=== PATIENT | male | born 1945 | race Caucasian/White ===

== ENCOUNTER → 2018-01-12 | Outpatient (CLI) | payer OTHER ==
[~2018-01-12] MED LIST: AMLO10TA6 PO; ASPI-621 PO; CARV6.252 PO; CHOL500015 PO; CLOP75TA PO; LOSA1TAB25 PO; PRAV80TA2 PO
[2018-01-12 11:20] LABS: BASOPHILS # (AUTO) 0.05 x10^3/uL (0-0.1); BASOPHILS % (AUTO) 1 % (0-1); EOSINOPHILS # (AUTO) 0.13 x10^3/uL (0-0.4); EOSINOPHILS % (AUTO) 2 % (1-7); LYMPHOCYTES # (AUTO) 2.56 x10^3/uL (1-3.4); LYMPHOCYTES % (AUTO) 38 % (22-44); MD NO; MEAN CORPUSCULAR HEMOGLOBIN 32.2 pg (27.5-34.5); MEAN CORPUSCULAR HGB CONC 34.5 g/dL (33.2-36.2); MEAN CORPUSCULAR VOLUME 93.4 fL (81-97); MEAN PLATELET VOLUME 8.1 fL (7.4-10.4); MONOCYTES # (AUTO) 0.57 x10^3/uL (0.2-0.8); MONOCYTES % (AUTO) 8 % (2-9); NEUTROPHILS # (AUTO) 3.52 x10^3/uL (1.8-6.8); NEUTROPHILS % (AUTO) 52 % (42-75); PLATELET COUNT 309 x10^3/uL (130-400); RED BLOOD COUNT 4.33 x10^6/uL (4.38-5.82); RED CELL DISTRIBUTION WIDTH 14.4 % (9.4-14.8)
[2018-01-12 11:28] LABS: ANION GAP 10 mmol/L (5-15); CALCIUM 9.1 mg/dL (8.5-10.1); CHLORIDE 108 mmol/L (98-107)
[2018-01-12 11:33] LABS: ALANINE AMINOTRANSFERASE 28 U/L (12-78); ALKALINE PHOSPHATASE 74 U/L (45-117); BILIRUBIN,TOTAL 0.6 mg/dL (0.2-1.0); CREATININE 0.95 mg/dL (0.7-1.3); TOTAL PROTEIN 7.5 g/dL (6.4-8.2)
== END | disposition home or self-care (01) ==
LOC: STAR 09:52
PROVIDERS: ATTEND Surgery Vascular Surgery
DX: Z01.818 Encounter for other preprocedural examination (principal); I45.10 Unspecified right bundle-branch block; I25.2 Old myocardial infarction
CPT/HCPCS: 36415; 80053; 85025; 93005

== ENCOUNTER 2018-01-18 07:30 | Inpatient (IN) | payer OTHER ==
[~2018-01-18] VITALS: Ht 182.9 cm; Wt 88.7 kg
[~2018-01-18 07:30] MED LIST changes: -ASPI-621 PO; +ASPI81TA45 PO
[2018-01-28] MEDS ORDERED: THROMBIN 5,000 UNIT VIAL TP ONE (10:01)
[2018-01-28] MEDS ORDERED: PAPAVERINE 30 MG/ML, 2ML ONE (10:01)
[2018-01-28] MEDS ORDERED: PROTAMINE SULFATE 10 MG/ML, 5ML ONE (10:01)
[2018-01-28] MEDS ORDERED: HEPARIN 1,000 UNITS/ML, 10ML ONE ×2 (10:01→13:17)
[2018-01-28] MEDS ORDERED: LIDOCAINE/PF 1%, 30ML ONE (10:01)
[2018-01-28] MEDS ORDERED: BUPIVACAINE/PF-EPI 0.5% 1:200K ONE (10:01)
[2018-01-28] MEDS ORDERED: BACITRACIN 50,000 UNIT ONE (10:02)
[2018-01-28] MEDS ORDERED: LACTATED RINGERS 1,000 ML IV SCH (10:32)
[2018-01-28 10:39] VITALS: BP 115/67
[2018-01-28] MEDS ORDERED: FENTANYL PF 250 MCG/5ML ONE (12:38)
[2018-01-28] MEDS ORDERED: GLYCOPYRROLATE 0.2MG/1ML, 5ML ONE (12:39)
[2018-01-28] MEDS ORDERED: ONDANSETRON 2MG/ML, 2ML ONE (12:39)
[2018-01-28] MEDS ORDERED: CEFAZOLIN 1,000 MG ONE (12:39)
[2018-01-28] MEDS ORDERED: DEXAMETHASONE 4 MG/ML, 1ML ONE (12:39)
[2018-01-28] MEDS ORDERED: NEOSTIGMINE 1 MG/ML, 10ML ONE (12:39)
[2018-01-28] MEDS ORDERED: ROCURONIUM 10 MG/ML,10ML ONE (12:39)
[2018-01-28] MEDS ORDERED: PROPOFOL 10 MG/ML, 20ML ONE (12:39)
[2018-01-28] MEDS ORDERED: MIDAZOLAM 1 MG/ML, 2ML ONE (12:40)
[2018-01-28] MEDS ORDERED: PROMETHAZINE 25 MG/ML, 1ML IV PRN (13:30)
[2018-01-28] MEDS ORDERED: OXYcodone 5 MG/5 ML ORAL.SOL UDC PO PRN (13:30)
[2018-01-28] MEDS ORDERED: ALBUTEROL SULFATE 2.5 MG/3 ML NPPB PRN (13:30)
[2018-01-28] MEDS ORDERED: LABETALOL 5MG/ML, 20ML IV PRN (13:30)
[2018-01-28] MEDS ORDERED: HYDROmorphone 1 MG/ML, 1ML IV PRN (13:30)
[2018-01-28] MEDS ORDERED: FENTANYL PF 100 MCG/2ML IV PRN (13:30)
[2018-01-28] MEDS ORDERED: ACETAMINOPHEN 325 MG TABLET PO PRN (13:30)
[2018-01-28] MEDS ORDERED: hydrALAzine 20 MG/ML, 1ML IV PRN (13:30)
[2018-01-28 17:25] VITALS: BP 90/50
[2018-01-28] MEDS: LABETALOL 5MG/ML, 20ML IVPush SCH (18:22)
[2018-01-28] MEDS ORDERED: ONDANSETRON 2MG/ML, 2ML IV PRN (18:30)
[2018-01-28] MEDS ORDERED: LABETALOL 5MG/ML, 20ML IVPush PRN (18:30)
[2018-01-28] MEDS ORDERED: morphine SULFATE 10 MG/ML, 1ML IV PRN (18:30)
[2018-01-28] MEDS ORDERED: HYDROcodone/APAP 5/325 TABLET PO PRN (18:30)
[2018-01-28] MEDS: POTASSIUM CHLORIDE 20 MEQ in D5%-0.45% NACL 1,000 ML IV SCH (18:46)
[2018-01-28 18:49] VITALS: BP 97/56
[2018-01-28] MEDS: SODIUM CHLORIDE FLUSH 10ML SYR IVF SCH (22:17)
[2018-01-29] MEDS: LABETALOL 5MG/ML, 20ML IVPush SCH ×2 (02:30→10:30)
[2018-01-29 03:59] VITALS: BP 110/63
[2018-01-29 07:01] VITALS: BP 101/61
[2018-01-29] MEDS: POTASSIUM CHLORIDE 20 MEQ in D5%-0.45% NACL 1,000 ML IV SCH (07:28)
[2018-01-29] MEDS: SODIUM CHLORIDE FLUSH 10ML SYR IVF SCH (09:00)
[2018-01-29] MEDS ORDERED: AMLODIPINE 10 MG TAB PO SCH (09:00)
[2018-01-29] MEDS ORDERED: CLOPIDOGREL 75 MG TABLET PO SCH (09:00)
[2018-01-29] MEDS ORDERED: CARVEDILOL 3.125 MG TABLET PO SCH (09:00)
[2018-01-29] MEDS ORDERED: LOSARTAN 50MG TABLET PO SCH (09:00)
[2018-01-29] MEDS ORDERED: PRAVASTATIN 40 MG TABLET PO SCH (09:00)
[2018-01-29] MEDS ORDERED: CHOLECALCIFEROL 5,000u TAB PO SCH (09:00)
[2018-01-29] MEDS ORDERED: ASPIRIN 81 MG TABLET CHEW PO SCH (09:00)
[2018-01-29] MEDS ORDERED: HYDROCHLOROTHIAZIDE 12.5 MG CAPSULE PO SCH (09:00)
[2018-01-29 10:24] VITALS: BP 120/64
[2018-01-29] MEDS ORDERED: HYDR-3240 PO (11:12)
== END 2018-01-29 11:26 | disposition home or self-care (01) | DRG 39 ==
LOC: ORIP 01-28 09:55 → 4NOR 01-28 17:17 → DCLOUNGE 01-29 11:10
PROVIDERS: ADMIT Surgery Vascular Surgery; ATTEND Surgery Vascular Surgery
PROC: 03CL0ZZ Extirpation of Matter from Left Internal Carotid Artery, Open Approach (ICD-10-PCS; 2018-01-28)
PROC: 03CN0ZZ Extirpation of Matter from Left External Carotid Artery, Open Approach (ICD-10-PCS; 2018-01-28)
PROC: 03UJ0KZ Supplement Left Common Carotid Artery with Nonautologous Tissue Substitute, Open Approach (ICD-10-PCS; 2018-01-28)
PROC: 03UL0KZ Supplement Left Internal Carotid Artery with Nonautologous Tissue Substitute, Open Approach (ICD-10-PCS; 2018-01-28)
PROC: 03UN0KZ Supplement Left External Carotid Artery with Nonautologous Tissue Substitute, Open Approach (ICD-10-PCS; 2018-01-28)
PROC: 03HY32Z Insertion of Monitoring Device into Upper Artery, Percutaneous Approach (ICD-10-PCS; 2018-01-28)
PROC: 4A133B1 Monitoring of Arterial Pressure, Peripheral, Percutaneous Approach (ICD-10-PCS; 2018-01-28)
PROC: 4A133J1 Monitoring of Arterial Pulse, Peripheral, Percutaneous Approach (ICD-10-PCS; 2018-01-28)
PROC: 03CJ0Z6 (ICD-10-PCS; principal; 2018-01-28 12:30)
DX: I65.22 Occlusion and stenosis of left carotid artery (principal); I25.10 Atherosclerotic heart disease of native coronary artery without angina pectoris; I10 Essential (primary) hypertension; E78.5 Hyperlipidemia, unspecified; I99.9 Unspecified disorder of circulatory system; Z95.5 Presence of coronary angioplasty implant and graft; Z88.6 Allergy status to analgesic agent; Z87.891 Personal history of nicotine dependence
CPT/HCPCS: 36415; 86850; 86900; 95938; 95941; C1729; G0378; J0690; J1100; J1644; J2250; J2405; J2704; J2710; J2720; J3010; J3480; J3490; C1768; J2440; J7120